=== PATIENT | female | born 1990 | race Caucasian/White ===

== ENCOUNTER 2017-01-20 05:36 | Inpatient (IN) | payer MEDICAID ==
[~2017-01-20] VITALS: Ht 152.4 cm; Wt 58.6 kg
[2017-01-20] VITALS (10 sets, daily range): BP systolic 95–134; BP diastolic 54–84; Ht 152.4 cm; Wt 58.6 kg
--- NOTE | ~2017-01-20 | OP ---
PATIENT NAME: YESI HADDAD MEDICAL RECORD: [id number] :91 LOCATION:[id number] ADMISSION DATE:01/20/17 SURGEON: JOSHUA RIVERS MD DATE OF OPERATION: 01/20/2017 PREOPERATIVE DIAGNOSES: 1. Intrauterine at 39 weeks. 2. Previous times 1. POSTOPERATIVE DIAGNOSES: 1. Intrauterine at 39 weeks. 2. Previous times 1. 3. Delivered. SURGEON: Joshua Rivers MD ANESTHESIA: Cole Singleton CRNA, NIC and Nicho Haskins MD with spinal anesthesia. PROCEDURE: Repeat low transverse . FINDINGS: Delivery of viable male from vertex presentation via repeat low transverse under spinal anesthesia at 8:07 a.m. with weight of 8 pounds 4 ounces and scores of 9 and 9 at 1 and 5 minutes respectively. No nuchal cord was noted. The cord was clamped and cut. The was bulb suctioned and handed to awaiting pediatric nursing personnel. The placenta was delivered manually intact 3-vessel cord at 8:08 a.m., 20 units of Pitocin and 1 liter of normal saline was begun IV. The fundus was initially noted to be firm. Normal appearing uterus, ovaries and tubes bilaterally. At the completion of the procedure, fundal massage for evacuation of clots performed with approximately 500-700 cc of blood and clot evacuated from a posteriorly displaced uterus. The fundus of the uterus retroflexed. The patient was given 800 mcg of Cytotec per rectum and 10 extra units of Pitocin in her IV fluids. The fundus was then noted to be firm. The patient went to the recovery room in stable condition, the infant to the nursery. DESCRIPTION OF PROCEDURE: After informed consent was given, the patient was taken to the operating room where spinal anesthesia was placed and found to be adequate. She was placed in a dorsal supine position with a leftward tilt. A Brandon catheter was placed with clear urine return noted. She was prepped and draped sterilely. When adequate anesthesia was established, a Pfannenstiel skin incision was made through her previous scar and carried down to the underlying layer of fascia. The fascia was incised in the midline and the fascial incision extended bilaterally with the Raines scissors. The superior portion of the fascial incision was grasped with 2 Kylah clamps and the rectus muscles dissected off sharply and bluntly. Attention was then turned to the inferior portion of the fascial incision, which was again grasped with 2 Kylah clamps and the rectus muscles dissected off sharply and bluntly. The rectus muscles were in the midline, the peritoneum identified and grasped with 2 hemostats. It was entered sharply with the Metzenbaum scissors and this incision was extended superiorly and inferiorly with good visualization of the bladder. The bladder blade was inserted and the vesicouterine peritoneum was grasped with smooth pickups and entered sharply with Metzenbaum scissors. This incision was extended bilaterally and a bladder flap created digitally. A bladder blade was reinserted. The hysterotomy was then created with the knife OPERATIVE REPORT [id number] YESI HADDAD and this was extended bilaterally bluntly, and the 's head delivered atraumatically. No nuchal cord was noted. The cord was clamped times 2 and cut. The infant was bulb suctioned and handed to awaiting pediatric nursing personnel. The placenta was delivered manually and passed off the field as specimen. Cord blood was obtained. The uterus was exteriorized, cleared of all clots and debris. The interior of the uterus was wiped with a moist lap sponge. The hysterotomy was then closed in 2 layers with 0 chromic in a running locked fashion, the second layer imbricating the first. Excellent hemostasis was noted and the uterus was returned to the abdomen. The abdomen was irrigated profusely and noted to be hemostatic. The fundus was noted to be firm at that time. Fibrin was placed over the hysterotomy site to aid additionally in hemostasis. The rectus muscles were reapproximated in the midline with 3 interrupted chromic sutures. Clear urine was noted at this portion of the procedure. The fascia was then closed with #1 Vicryl in a running locked fashion, locking the first suture. The subcutaneous tissue was irrigated, any bleeders cauterized with the Bovie and when noted to be sufficiently dry, it was closed with 3-0 Vicryl in a running fashion and the skin was closed with 3-0 Monocryl in a subcuticular fashion. Dermabond and pressure dressing were applied. The patient was then placed into a frog legged position and in the standard protocol, the fundus was massaged to evacuate clots. The fundus was noted to be posteriorly displaced/retroflexed and 500 to 700 cc of blood and clot were evacuated from the uterus and vagina. The nurse was immediately alerted to this and 800 mcg of Cytotec was ordered, and then placed rectally 10 additional units of Pitocin were placed into the IV to aid in uterine contraction. Bimanual massage was performed and the fundus remained firm. Lochia was light at completion of the procedure and the fundus was firm. The patient's vital signs remained stable throughout the procedure and at completion of the procedure. The patient was then transferred into the recovery room in stable condition, the to the nursery. The patient tolerated the procedure well. Sponge, lap, needle, and instrument counts were reported correct times 2. ESTIMATED BLOOD LOSS: 1200 cc. URINE OUTPUT: 300 cc. SPECIMENS: Placenta and cord blood. COMPLICATIONS: None. TRANSINT:[id number] Voice Confirmation ID: [id number] DOCUMENT ID: [id number] JOSHUA RIVERS MD CC: [id number] DICTATION DATE: 01/20/17939 MILL ATTENDANT: 01/20/17 1407 DIS IN 01/22/17 [facility] [address] [place] [address]
[2017-01-20] MEDS ORDERED: PRENATAL COMPLE1 TAB PO (05:57)
[2017-01-20 06:32] LABS: HEMATOCRIT 32.7 % (36.0-48.0); HEMOGLOBIN 11.4 g/dL (12-16); MCH 32.6 pg (26.0-34.0); MCHC 34.9 g/dL (31.0-37.0); MCV 93.4 fL (80.0-100.0); MEAN PLATELET VOLUME 10.2 fL (7.4-10.4); RBC 3.5 10x6/uL (4.00-5.40); RDW 12.7 % (11.5-14.5); WBC 8.4 10x3/uL (4.8-10.8)
--- NOTE | 2017-01-20 09:42 | NUR ---
Received to room by bed from recovery, pt is drowsy but wakes easily and repsonds to questions with appropriate response. VSS, IV to left forearm patent and placed on pump per orders, TEA BAG PACKER started and pt demonstrates use. Fundus firm at u/1 with light bleeding noted and no clots. Dixie pad changed. Bikini incision covered with large white abd dressing that is clean and dry. Brandon to bedside gravity drain with 50ml clear urine noted. SCD bilat on pump. Family allowed back to room but encouraged to limit visitors to 1 or 2 at a time. Side rails up x 2 with phone and call light in reach.
[2017-01-20 10:00] LABS: APPEARANCE CLEAR (CLEAR); BILIRUBIN NEGATIVE (NEGATIVE); COLOR YELLOW (YELLOW); GLUCOSE NEGATIVE (NEGATIVE); KETONE NEGATIVE (NEGATIVE); NITRITE NEGATIVE (NEGATIVE); PROTEIN NEGATIVE (NEGATIVE); SPECIFIC GRAVITY 1.015 (1.005-1.020); UROBILINOGEN NORMAL (NORMAL)
--- NOTE | 2017-01-20 10:02 | NUR ---
Fundus firm at u/u, no clots noted and scant bleeding. Pt tolerates massage well with diversion.
[2017-01-20 10:04] LABS: LEUKOCYTE ESTERASE TRACE (NEGATIVE)
[2017-01-20 10:06] LABS: BACTERIA MODERATE /hpf (NONE SEEN); MUCUS <1+ /lpf (NONE SEEN); RED CELLS - URINE OCC /hpf (0-5); WHITE CELLS - URINE 0-5 /hpf (0-5)
[2017-01-20 10:15] LABS: UDS - AMPHET NEGATIVE QUAL (NEGATIVE); UDS - BARB NEGATIVE QUAL (NEGATIVE); UDS - BENZO NEGATIVE QUAL (NEGATIVE); UDS - COCAINE NEGATIVE QUAL (NEGATIVE); UDS - METH NEGATIVE QUAL (NEGATIVE); UDS - OPIATE NEGATIVE QUAL (NEGATIVE); UDS - PCP NEGATIVE QUAL (NEGATIVE); UDS - THC NEGATIVE QUAL (NEGATIVE)
--- NOTE | 2017-01-20 10:15 | NUR ---
large ice water per request, new ice pack to incision site. Fundus firm at u/u with scant bleeding without clots. Chux and baljinder pad changed, pt is able to lift bottom to assist. Rates pain at 2/10, family at bedside.
[2017-01-20 10:28] LABS: BASOPHILS 0.1 % (0.0-2.0); EOSINOPHILS 0.3 % (0-7); HEMATOCRIT 30.6 % (36.0-48.0); HEMOGLOBIN 10.6 g/dL (12-16); IMMATURE GRANULOCYTES 1.3 % (0-5); LYMPHOCYTES 13.9 % (15-50); MCH 32.5 pg (26.0-34.0); MCHC 34.6 g/dL (31.0-37.0); MCV 93.9 fL (80.0-100.0); MEAN PLATELET VOLUME 9.9 fL (7.4-10.4); MONOCYTES 8.9 % (2-11); NEUTROPHILS 75.5 % (40-80); PLATELET COUNT 235 10x3/uL (130-400); RBC 3.26 10x6/uL (4.00-5.40); RDW 12.7 % (11.5-14.5); WBC 15.3 10x3/uL (4.8-10.8)
[2017-01-20 11:27] LABS: APTT 27.2 SECONDS (22.8-39.4); INR 0.98 (0.85-1.17); PROTIME 12.8 SECONDS (11.6-15.0)
--- NOTE | 2017-01-20 11:46 | NUR ---
FUNDUS FIRM UPON MASSAGE, PT TOLERATES BETTER WITH DIVERSON. LIGHT TO MODERATE BLEEDING NOTED, NO CLOTS WITH MASSAGE. CHUX AND TOWELS CHANGED, PT ABLE TO RAISE HER BOTTOM AND ASSIST WITH MOVING UP IN BED. HEAD OF BED ELEVATED, INFANT BROUGHT TO ROOM FOR FEEDING, PT ASK NURSERY FOR ASSISTANCE WITH LATCHING ON. sugar SALDANA RN REMAINS AT BEDSIDE. CALL LIGHT IN REACH.
--- NOTE | 2017-01-20 12:30 | NUR ---
large ice water per request. Pt more alert and moving around in bed, she is able to murphy her bottom without complaint for chux to be changed. fundus firm at u/1 with scant bleeding at this time. new ice pack to incision, bandage remains clean and dry. Side rails up x 2 with phone and call light in reach.
[2017-01-20 13:30] LABS: BASOPHILS 0.1 % (0.0-2.0); EOSINOPHILS 0.1 % (0-7); HEMOGLOBIN 8.8 g/dL (12-16); IMMATURE GRANULOCYTES 0.6 % (0-5); LYMPHOCYTES 14.4 % (15-50); MCH 32.4 pg (26.0-34.0); MCHC 35.2 g/dL (31.0-37.0); MEAN PLATELET VOLUME 9.8 fL (7.4-10.4); MONOCYTES 7.7 % (2-11); NEUTROPHILS 77.1 % (40-80); RBC 2.72 10x6/uL (4.00-5.40); RDW 12.6 % (11.5-14.5); WBC 14.5 10x3/uL (4.8-10.8)
[2017-01-20 13:31] LABS: MCV 91.9 fL (80.0-100.0); PLATELET COUNT 185 10x3/uL (130-400)
[2017-01-20 13:42] LABS: APTT 27.6 SECONDS (22.8-39.4); INR 1.05 (0.85-1.17); PROTIME 13.6 SECONDS (11.6-15.0)
--- NOTE | 2017-01-20 14:00 | NUR ---
Dixie care per rn, towels and chux changed and pt repositioned to right side with pillows used for support. Prior to turning pt shown how to use pillow to abdomen and uses incentive spirometer x 2 and coughs. tordal given as charted on emar. infant in room being held by family member. Side rails up x 2 with call light with in reach. Pt encouraged to rest/sleep if possible.
--- NOTE | 2017-01-20 15:01 | NUR ---
Pt awake and rates pain at 2/10, states the tordal helped with the cramping. fundus firm at u/1, no clots noted massage and light bleeding noted, baljinder pad changed. large ice water per request, no other needs at this time. side rails up x 2, pt sister at bedside.
--- NOTE | 2017-01-20 16:45 | NUR ---
Pt is awake and sitting up in bed visiting with family. Rates pain 2/10, denies nausea and no dizziness when sitting up. fundus firm at u/u with light lochia noted to baljinder pad, no clots with massage. Baljinder care per rn, towels anc chux changed with pt lifting her bottom off the bed without complaint. Coughs x 2 after use of incentive spirometer. Turns self to left side. in crib at bedside, side rails up x 2 with phone and call light in reach.
[2017-01-20 17:17] LABS: BASOPHILS 0.1 % (0.0-2.0); EOSINOPHILS 0.1 % (0-7); HEMOGLOBIN 8.3 g/dL (12-16); IMMATURE GRANULOCYTES 0.6 % (0-5); LYMPHOCYTES 17.4 % (15-50); MCH 32.2 pg (26.0-34.0); MCHC 34.6 g/dL (31.0-37.0); MEAN PLATELET VOLUME 10.1 fL (7.4-10.4); MONOCYTES 7.9 % (2-11); NEUTROPHILS 73.9 % (40-80); PLATELET COUNT 203 10x3/uL (130-400); RBC 2.58 10x6/uL (4.00-5.40); RDW 12.5 % (11.5-14.5); WBC 13.6 10x3/uL (4.8-10.8)
[2017-01-20 17:33] LABS: APTT 27.8 SECONDS (22.8-39.4); INR 1.05 (0.85-1.17); PROTIME 13.5 SECONDS (11.6-15.0)
--- NOTE | 2017-01-20 18:04 | NUR ---
fundus firm at u/u with scant bleeding noted. sanchez cath emptied, urine continue to be blue at this time. total output since pt recieved from recovery has been 1000ml. IV pump totals cleared at this time also. Pt rates pain at 3/10 and denies any needs.
--- NOTE | 2017-01-20 19:05 | NUR ---
Chicken broth provided to pt per request. Pt in semi fowlers position. Reports she changed position herself about 10 minutes ago. Does not want pads changed at this time. Reports she would like to eat the chicken broth first then have pads changed. Family member in room holding NB. SR up x2. Bed low. Call light in reach.
--- NOTE | 2017-01-20 19:50 | NUR ---
Assessment complete. Pt sitting up in bed with family in room. Fundus massaged. Firm and midline 1FB below umbillicus. Vag bleeding scant-small. Underpads changed. Pt reports some soreness in abd area. Pain med administered as ordered. See EMAR. Brandon in place and draining below level of bladder. SCDs in place. IV infusing without difficulty. See EMAR for med details. Repositioned to L side. Pt is going to do skin to skin contact with NB and attempt to breastfeed. Call light in reach. Bed low. SR up x2.
[2017-01-20 22:29] LABS: BASOPHILS 0.1 % (0.0-2.0); EOSINOPHILS 0.2 % (0-7); HEMATOCRIT 22.6 % (36.0-48.0); HEMOGLOBIN 7.9 g/dL (12-16); IMMATURE GRANULOCYTES 0.5 % (0-5); LYMPHOCYTES 10.6 % (15-50); MCH 32.5 pg (26.0-34.0); MEAN PLATELET VOLUME 9.8 fL (7.4-10.4); MONOCYTES 8.1 % (2-11); NEUTROPHILS 80.5 % (40-80); PLATELET COUNT 191 10x3/uL (130-400); RBC 2.43 10x6/uL (4.00-5.40); RDW 12.5 % (11.5-14.5); WBC 13.1 10x3/uL (4.8-10.8)
[2017-01-20 22:33] LABS: INR 1.11 (0.85-1.17); PROTIME 14.2 SECONDS (11.6-15.0)
--- NOTE | 2017-01-20 22:50 | NUR ---
DR. MENDES NOTIFIED OF MOST RECENT CBC RESULTS (SEE LAB RESULTS). NEW ORDER RCVD.
--- NOTE | 2017-01-20 23:00 | NUR ---
blood transfusion consent explained and signed by patient. family members present in room.
--- NOTE | 2017-01-20 23:15 | NUR ---
Pt repositioned self to back in fowlers position. Pads changed. Fundus firm and midline 1FB below umb. Scant vag bleeding noted.
--- NOTE | 2017-01-20 23:23 | NUR ---
NS infusing @ KVO.
--- NOTE | 2017-01-20 23:25 | NUR ---
One IV attempt to R wrist using 22G IV cath without success. Bandage to site. IV started x1 stick to R AC using 20G IV cath. Saline locked. Pt tolerated well.
--- NOTE | 2017-01-20 23:35 | NUR ---
NS infusing @ KVO.
--- NOTE | 2017-01-20 23:48 | NUR ---
First unit PRBC verified by this RN and CORRY Rosenthal. Blood band matched to blood. First unit PRBC started @ 30ml/hr. RN remains at bedside for monitoring.
[2017-01-21] VITALS (21 sets, daily range): BP systolic 93–122; BP diastolic 53–72
--- NOTE | 2017-01-21 00:02 | NUR ---
PRBC infusion increased to 125ml/hr. No s/s transufion rejection noted. Pt sitting up in bed talking with family.
--- NOTE | 2017-01-21 00:18 | NUR ---
PRBCs increased to 250ml/hr. No s/s transfusion reaction/rejection.
--- NOTE | 2017-01-21 01:15 | NUR ---
Pt sleeping upon entering room. Wakes easily with stimulus. Assisted to reposition to R tilt. Family at bedside. Call light in reach. Bed low. SR upx2.
--- NOTE | 2017-01-21 01:49 | NUR ---
Infusion of first unit PRBCs complete. NS infusing to flush line. Pt had no s/s transfusion reaction/rejection. Tolerated well.
--- NOTE | 2017-01-21 02:00 | NUR ---
Blood tubing changed.
--- NOTE | 2017-01-21 02:19 | NUR ---
Second unit PRBCs verified by this RN and Yuan Aldana RN. Blood bag matched to patients blood band on R wrist. Unit started @ 30ml/hr. Nurse at bedside for monitoring.
--- NOTE | 2017-01-21 02:35 | NUR ---
No s/s transfusion reaction noted. Pt sleeping. Infusion increased to 125ml/hr.
--- NOTE | 2017-01-21 02:47 | NUR ---
Infusion rate increased to 250ml/hr. No s/s transfusion reaction noted. Pt resting well. Call light in reach. Bed low. SR upx2. Family in room.
--- NOTE | 2017-01-21 03:30 | NUR ---
Pt repositioned self to semi fowlers position. Call light in reach. Bed low. SR upx2.
--- NOTE | 2017-01-21 03:37 | NUR ---
Pt sleeping. Pt request underpads not be changed. Bleeding remains scant. No clots present. Fundus firm and midline 1FB below umbillicus. Call light in reach. Bed low. SR upx2. Family at bedside.
--- NOTE | 2017-01-21 03:53 | NUR ---
Second unit PRBCs complete. Blood tubing changed. NS infusing @ KVO. No s/s transfusion reaction noted. Pt continues to sleep.
--- NOTE | 2017-01-21 04:21 | NUR ---
Third unit PRBCs verified by this RN and Yuan Aldana, RN. Blood bag matched to pts blood band on R wrist. Infusion started @ 30ml/hr. RN at bedside for monitoring. Pt resting well.
[2017-01-21 05:13] LABS: RAPID PLASMA REAGIN Non Reactive (Non Reactive)
--- NOTE | 2017-01-21 06:00 | NUR ---
[employer] syringe empty. New syringe placed.
--- NOTE | 2017-01-21 06:00 | NUR ---
Fundus massaged. Firm and midline 1FB below umbillicus. Scant amount of vag bleeding noted. No clots. Underpads changed. Pt repositioned to R side. Starting to c/o gas pain in abd. Pt given warm pad to place on upper abd and bilateral shoulders. Pt instructed not to place warm pad on incision. Pt verbalized understanding. Call light in reach. Bed low. SR upx2. Family at bedside.
--- NOTE | 2017-01-21 06:42 | NUR ---
Third unit PRBCs complete. Line flushed with NS @ 125ml/hr. No s/s transfusion reaction noted. Pt denies any complaints.
--- NOTE | 2017-01-21 07:09 | NUR ---
THIS RN TO ROOM FOR SHIFT ASSESSMENT. PT CURRENTLY RESTIN G QUIETLY W/EYES CLOSED IN HIGH CASTELAN'S POSITION. RESP REG AND EVEN. PT LEFT UNDISTURBED AT THIS TIME.
[2017-01-21 07:26] LABS: BASOPHILS 0.1 % (0.0-2.0); EOSINOPHILS 0.5 % (0-7); IMMATURE GRANULOCYTES 0.5 % (0-5); LYMPHOCYTES 10.2 % (15-50); MCH 31.6 pg (26.0-34.0); MCHC 34.9 g/dL (31.0-37.0); MONOCYTES 9.3 % (2-11); NEUTROPHILS 79.4 % (40-80); PLATELET COUNT 170 10x3/uL (130-400); RDW 13.2 % (11.5-14.5); WBC 13.6 10x3/uL (4.8-10.8)
[2017-01-21 07:30] LABS: HEMATOCRIT 31.2 % (36.0-48.0); HEMOGLOBIN 10.9 g/dL (12-16); MCV 90.4 fL (80.0-100.0); RBC 3.45 10x6/uL (4.00-5.40)
--- NOTE | 2017-01-21 07:30 | NUR ---
LAB OUT OF ROOM AFTER 1 HR POST INFUSION BLOOD DRAW.THIS RN TO BEDSIDE FOR SHIFT ASSESSMENT. PT CURRENTLY SITTING UP IN BED AA&O X 4. PAIN ASSESSED. PT REPORTS SHE HAS JUST NOW PUSHED HER HOUSEKEEPING SUPERVISOR HOTEL BUTTON FOR C/O INCISIONAL PAIN OF 6/10. PT REPORTS SHE IS STILL HAVING C/O GAS PAIN. REPORTS SHE WAS ABLE TO PASS SMALL AMOUNT OF JASIEL YESTERDAY, BUT HAS NOT TODAY. BREATHSOUNDS CL\=, ABD SOFT, SLIGHTLY DISTENDED. FUNDUS FIRM, U/1, LOW TRANSVERE INCISION W/LARGE ABD DRESSING C/D/I. CALDERON CATH IN PLACE W/APPROX 230ML URINE NOTED. GENERALIZED, NON-PTTING EDEMA NOTED TO LE'S. SCD WRAPS ON BILATERALLY TO LE'S. WRAPS CONNECTED TO PUMP. PT IS ON AND FUCTIONING. PT'S HAS PIV TO LEFT FOREARM W/20 UNITS OF PITOCIN IN NS INFUSING AT 100ML AND A DEMEROL HOUSEKEEPING SUPERVISOR HOTEL. A SECOND PIV TO LEFT AC W/NS INFUSIONG AT 125ML TO FLUSH BLOOD TUBING AFTER COMPLETION OF 3 RD UNIT OF PRBC'S. CLEAR LIQUID BREAKFAST TRAY SERVED AT THIS TIME. FRESH ICE WATER SERVED. CONTINUED POC DISCUSSED W/PT. PT VERBALIZES UNDERSTANDING AND IS AGREEABLE. APRROX 10 MINS PASS AFTER PT PUSHED HOUSEKEEPING SUPERVISOR HOTEL BFUTTON. PT REASSESSED AT THAT THIS TIME. PT NOW RATES PAIN 3-4/10. DENIES NEEDING ADDITIONAL PAIN MEDICATION AT THIS TIME. BED LOW,SIDE RAILS UP X 2, CALL LIGHT, HOUSEKEEPING SUPERVISOR HOTEL BUTTON AND PHONE AT PT'S SIDE. FAMILY ON SOFA.
[2017-01-21 07:37] LABS: APTT 31.3 SECONDS (22.8-39.4); INR 1.03 (0.85-1.17); PROTIME 13.3 SECONDS (11.6-15.0)
--- NOTE | 2017-01-21 09:00 | NUR ---
ROUNDS MADE. PT SITTING UP IN BED VISITNG W/GUESTS. NO NEEDS VOICED AT THIS TIME.
--- NOTE | 2017-01-21 09:30 | NUR ---
THIS RN TO BED TO D/C CALDERON, SALINE LOCK IV SITE. PT CURRENTLY ATTEMPTING TO FEED . PT INFORMED OF POC AT THIS TIME, BUT THAT THIS RN WILL RETURN TO ROOM ONCE PT HAS HAD TIME TO FEED INFANT. PT DENIES NEEDS AT THIS TIME.
--- NOTE | 2017-01-21 09:50 | NUR ---
PT RINGS CALL LIGHT TO REPORT SHE IS READY TO GET UP TO THE SHOWER. Jada SPARKSRN TO PT'S ROOM. RT AC IV SITE D/C'D. SITE WNL. BANDAID PLACED OVER SITE. IV SITE TO LEFT FOREARM FLUSHED AND SALINE LOCKED. CALDERON CATH D/C'D INTACT W/APPROX 225ML URINE NOTED IN UROMETER. SCD WRAPS REMOVED AT THIS TIME W/PT TEACHING THAT THEY MAY REMAIN OFF WHILE SHE IS AWAKE AND AMBULATORY, BUT WHEN SHE IS IN BED TO REST, MD REQUES THEY BE PLACED BACK ON,CONNECTED TO PUMP AND PUMP TURNED BACK ON. PT TO NOTIFY NURSE WHEN SHE IS GOING TO BE LYING IN BED FOR REST. PT VERBALIZES UNDERSTANDING AND IS AGREEABLE. PT OOB W/BED W/MINIMAL ASSISTANCE. TEACHING PROVIDED PER Jada SPARKS RN IN REGARDS TO HOW TO REMOVED ABD DRESSING WHILE IN THE SHOWER. BATHING ITEMS PROVIDED AND PT TO SHOWER AT THIS TIME.
--- NOTE | 2017-01-21 10:00 | NUR ---
PERCOCET 10/325MG ONE TAB ADMIN PER D CORRY SPARKS.SEE EMAR. PT UP TO SHOWER W/INSTRUCTIONS ON HOW TO REMOVE ABD DRESSING. BED LINENS CHANGED. BLUE BAG AND TRASH REMOVED FROM ROOM. CLEAN GOWN,PANTIES AND PADS PROVIDED.
--- NOTE | 2017-01-21 10:30 | NUR ---
DR MENDES TO ROOM TO SEE PT AT THIS TIME.
--- NOTE | 2017-01-21 11:00 | NUR ---
ROUNDS MADE. PT CURRENTLY UP AMBULATING IN ROOM. RATES PAIN 3/10. REPORTS ABLE TO PASS GAS AND GAS PAIN/PRESSURE HAS GONE. PT QUESTIONS IF DIET MAY BE ADVANCED TO A REGULAR DIET. PT INFORMED THAT YES, SHE MAY EAT A REGULAR DIET. BLAND DIET RECOMMENED. SOMRTHING TO EAT OR DRINK OFFERED. PT ACCEPTS. FRESH CUP OF ICE AND SANDWICH TRAY SERVED.PT DENIES FURTHER NEEDS AT THIS TIME.
--- NOTE | 2017-01-21 12:24 | NUR ---
THIS RN TO ROOM. PT HAS FINISHED EATING HER LUNCH. V/S OBTAINED. SEE FLOWSHEET. PAIN ASSESSED. PT REPORTS PAIN 01/16. DECLINES OFFER TO BRING HER ADDITIONAL PAIN MEDICATION AT THIS TIME.
--- NOTE | 2017-01-21 13:20 | NUR ---
CALLED TO ROOM BY PATIENT WAS ASKED TO LOOK AT INCISION. "I THINK I PULLED SOMETHING" VISUAL INSPECTION - INTACT WITHOUT DRAINAGE OR ERRYTHEMA. INSTRUCTED PT THAT SOMETIMES THE SURGICAL GLUE STICKS THE ABDOMEN TO INCISION AND THAT SOMETIMES THAT PULLS APART. VERBALIZED UNDERSTANDING. CLEAN HEIDI-PAD PLACED OVER INCISION TO HELP. STATES "THAT FEELS BETTER". INSTRUCTED TO CHANGE FREQUENTLY. VISITORS AND INFANT IN ROOM.
--- NOTE | 2017-01-21 14:22 | NUR ---
PT RINGS CALL VANI. Jada SPARKS,RN TO ROOM TO ASSESS PT'S NEEDS. PT REQUESTING PERCOCET FOR C/O PAIN. THIS RN TO ROOM TO ADMIN PERCOCET 10/325MG ONE TAB PER MD ORDERS. SEE EMAR. WHILE AT BEDSIDE, PT REQUEST ANOTHER SIMETHICONE FOR C/O INCREASED GAS. 80MG SIMETHICONE ADMIN PER MD ORDERS. SEE EMAR. FRESH ICE SERVED. PT DENIES FURTHER NEEDS AT THIS TIME. FRIEND ON SOFA W/INFANT UP IN ARMS.
--- NOTE | 2017-01-21 14:33 | NUR ---
PT RINGS CALL LIGHT TO HAVE NURSE COME TO ROOM TO ASSESS AMOUNT PT HAS VOIDED. Jada SPARKSRN TO ROOM. PT VOIDED 600ML URINE IN NUNS CAP. PT PLACES CLEAN PERIPAD OVER INCISION. AMBULATES W/OUT ASSISTANCE BACK TO BED. NO FURTHER NEEDS VOICED AT THIS TIME.
--- NOTE | 2017-01-21 15:12 | NUR ---
DESIRES TO BREASTFEED BUT HAS BEEN BOTTLEFEEDING SECONDARY TO FEELING LIKE "I'M NOT MAKING ANY MILK". DISCUSSED VS BOTTLE FEEDING AND ENCOURAGEMENT GIVEN TO CONTINUE TO ATTTEMPT TO BREASTFEED. LATCHES ON WITHOUT DIFFICULTY. DISCUSSED PROS AND CONS OF NIPPLE SHIELD USE AND PUMP USE AT THIS TIME. WRITTEN INFORMATION ALSO GIVEN ON TO READ AT HER LEISURE. SHE WILL CONTACT NURSERY IF SHE DECIDES TO PUMP TO STIMULATE MILK PRODUCTION AND CONTINUE TO PUT INFANT TO BREAST. VISITOR IN ROOM. CALL LIGHT IN REACH.
--- NOTE | 2017-01-21 15:27 | NUR ---
THIS RN TO BEDSIDE FOR PAIN REASSESSMENT. PT CURRENTLY RESTING IN HIGH CASTELAN'S W/INFANT ON CHEST. PT REPORTS PAIN IS GETTING BETTER, BUT STILL RATES IT AT A 7/10. DENIES NEEDS FOR FURTHER PAIN INTERVENTIONS AT THIS TIME. DENIES NEEDS AT THIS TIME.
--- NOTE | 2017-01-21 15:51 | NUR ---
PT AND FRIEND AMBULATING IN LIZ PER MD ORDERS TO AMBULATE X 2 DAILY
--- NOTE | 2017-01-21 17:56 | NUR ---
PT RETURNING FROM AMBULATING IN HALLS WITH FAMILY. PAIN AND NEEDS ASSESSED. PT DENIES NEEDS AT THIS TIME. REPORTS PAIN IS BEING TO INCREASE. STATES "I THINK IT'S BECAUSE I'VE BEEN UP MOVING AROUND. NO REQUEST PAIN INTERVENTIONS AT THIS TIME. PT REMINDED THAT SHE MAY HAVE PAIN MEDICATION AGAIN IN APRROX 30 MINS. PT VERBALZIES UNDERSTANDING. PT REMINDED TO VOID FREQUENTLY TO HELP DECREASE ABD PAIN. PT RETURNS TO ROOM WITH MULTIPLE FAMILY MEMBERS.
--- NOTE | 2017-01-21 18:43 | NUR ---
PT RINGS CALL LIGHT. THIS RN TO ROOM. PT REQUESTING PAIN MEDICATION AT THIS TIME. PERCOCET 10/325MG ONE TAB GIVEN PER MD ORDERS. SEE EMAR. PT REPORTS SHE HAS VOIDED AGAIN. NUNS CAP INSPECTED. 600ML URINE NOTED AND DUMP. TRASH AND DINNER TRAY REMOVED FROM ROOM. PT DENIES FURTHER NEEDS AT THIS TIME. PT RESTING IN BED W/INFANTON HER CHEST. MULTIPLE FAMILY GUEST REMAIN AT BEDSIDE.
--- NOTE | 2017-01-21 19:10 | NUR ---
PT AMBULATING IN LIZ. PT IN NO ACUTE DISTRESS. PT AMBULATING WITHOUT DIFFICULTY.
--- NOTE | 2017-01-21 19:29 | NUR ---
RN TO PT BS FOR ASAF. PT RESTING IN BED IN SEMI-FOWLERS POSITION, VISITING WITH MULTIPLE VISITORS AT PT BS, IN NO ACUTE DISTRESS. PT IS A 26YO G2 NOW P2 WITH REPEAT C/S YESTERDAY @ 0807 OF VIABLE MALE , INFANT @ 39.2 WKS GESTATION. PT WITH LOW LYING PLACENTA AND LARGE BLOOD LOSS AND S/P 3 UNITS PRBC'S YESTERDAY. AAOX3. HR REGULAR. LUNGS CTAB. ABDOMEN SOFT AND MILDLY DISTENDED. BS ACTIVE TIMES 4. FUNDUS NOT PALPATED. LOWER ABDOMINAL INCISION NOTED. WELL PROXIMATED. NO STERI STRIPS OR RADHA IN PLACE. NO REDNESS, EDEMA, OR DRAINAGE NOTED AT SITE. HEIDI PAD AND PANTIES IN PLACE. LOCHIA RUBRA SCANT. NO EDEMA NOTED TO UPPER OR LOWER EXTREMITIES BILATERALLY. 18G SL IN PLACE TO LEFT FA, NO REDNESS OR EDEMA NOTED TO SITE. PT TOLERATING REGULAR DIET. PT DENIES DIFFICULTY VOIDING, STATES SHE IS PASSING GAS, HAS NOT HAD A BM SINCE C/S. PT C/O PAIN RATES 6/10, PT MEDICATED WITH PERCOCET 10 AT 1840. PT DENIES ANY NEEDS AT THIS TIME. BED IN LOW POSITION, SIDE RAILS UP TIMES 2, CALL LIGHT AND PHONE IN REACH. MULTIPLE FAMILY MEMBERS REMAIN AT PT BS FOR SUPPORT AND ASSISTANCE. REMAINS AT PT BS FOR COUPLET CARE. WILL CONT TO MONITOR PT STATUS.
--- NOTE | 2017-01-21 20:53 | NUR ---
RN TO PT BS FOR ROUNDS. PT RESTING IN BED IN SEMI-FOWLERS POSITION, VISITING WITH MULTIPLE FAMILY MEMBERS AT PT BS. PT IN NO ACUTE DISTRESS. PT REQUESTS FORMULA FOR INFANT BOTTLE FEED. PROVIDED AT THIS TIME. PT DENIES ANY FURTHER NEEDS. BED IN LOW POSITION, SIDE RAILS UP TIMES 2, CALL LIGHT AND PHONE IN REACH. FAMILY REMAINS AT PT BS FOR SUPPORT AND ASSISTANCE. INFANT REMAINS AT PT BS FOR COUPLET CARE. WILL CONT TO MONITOR PT STATUS.
--- NOTE | 2017-01-21 21:27 | NUR ---
PT PROVIDED WITH HEATING PAD PER REQUEST. PT DENIES ANY FURTHER NEEDS AT THIS TIME. BED IN LOW POSITION, SIDE RAILS UP TIMES 2, CALL LIGHT AND PHONE IN REACH. FAMILY TIMES 1 REMAINS AT PT BS FOR SUPPORT AND ASSISTANCE. REMAINS AT PT BS FOR COUPLET CARE. WILL CONT TO MONITOR PT STATUS.
--- NOTE | 2017-01-21 22:18 | NUR ---
RN TO PT BS FOR ROUNDS. PT RESTING IN BED IN SEMI-FOWLERS POSITION, HOLDING , IN NO ACUTE DISTRESS. NURSERY RN AT PT BS ASSISTING WITH EFFORT. PT DENIES ANY NEEDS AT THIS TIME. BED IN LOW POSITION, SIDE RAILS UP TIMES 2, CALL LIGHT AND PHONE IN REACH. FAMILY AT PT BS TIMES 1 FOR SUPPORT AND ASSISTANCE. INFANT REMAINS AT PT BS FOR COUPLET CARE. WILL CONT TO MONITOR PT STATUS.
--- NOTE | 2017-01-21 22:51 | NUR ---
RN CALLED TO PT BS. PT C/O PAIN, RATES 05/18, REQUESTS MEDICATION. 1 TAB PERCOCET 10, 1 TAB IBUPROFEN, 1 TAB SIMETHICONE PROVIDED AT THIS TIME. PT DENIES ANY FURTHER NEEDS. BED IN LOW POSITION, SIDE RAILS UP TIMES 2, CALL LIGHT AND PHONE IN REACH. VS TAKEN, WNL. REMAINS AT PT BS FOR COUPLET CARE. WILL CONT TO MONITOR PT STATUS.
--- NOTE | 2017-01-22 00:03 | NUR ---
RN CALLED TO PT BS. PT REQUESTS THAT BE TRANSPORTED TO NURSERY FOR OBSERVATION. INFANT TRANSPORTED TO NURSERY VIA [facility] FOR OBSERVATION. REPORT GIVEN TO NURSERY RN. PT DENIES ANY FURTHER NEEDS AT THIS TIME. BED IN LOW POSITION, SIDE RAILS UP TIMES 2, CALL LIGHT AND PHONE IN REACH. WILL CONT TO MONITOR PT STATUS.
--- NOTE | 2017-01-22 00:04 | NUR ---
INFANT TO NSY PER Gallo QUEZADA RN. BABY SLEEPING AT THIS TIME. NO S/S DISTRESS NOTED. DANIEL WHEATLEY
[2017-01-22 02:48] VITALS: BP 99/57
--- NOTE | 2017-01-22 02:49 | NUR ---
RN CALLED TO PT BS WITH C/O PAIN, RATES 04/17, REQUESTS MEDICATION. 1 TAB PERCOCET 10 AND 1 TAB SIMETHICONE PROVIDED AT THIS TIME. VS TAKEN, WNL. PT DENIES ANY FURTHER NEEDS AT THIS TIME. BED IN LOW POSITION, SIDE RAILS UP TIMES 2, CALL LIGHT AND PHONE IN REACH. FAMILY TIMES 1 AT PT BS FOR SUPPORT AND ASSISTANCE. WILL CONT TO MONITOR PT STATUS.
--- NOTE | 2017-01-22 05:53 | NUR ---
RN TO PT BS FOR ROUNDS. PT RESTING IN BED IN SEMI-FOWLERS POSITION, WITH EYES CLOSED, HOLDING INFANT. PT AWAKENS EASILY WHEN SPOKEN TO. INFANT TRANSPORTED TO NURSERY VIA OPEN CRIB PER PT REQUEST. REPORT GIVEN TO NURSERY RN ON BOTTLE FEED. PT DENIES ANY FURTHER NEEDS. BED IN LOW POSITION, SIDE RAILS UP TIMES 2, CALL LIGHT AND PHONE IN REACH. FAMILY TIMES 1 FOR SUPPORT AND ASSISTANCE. WILL CONT TO MONITOR PT STATUS.
--- NOTE | 2017-01-22 07:00 | NUR ---
PT UP, AMBULATING IN [facility] TO NURSERY. PAIN AND NEEDS ASSESSED. PT REQUESTING DISPOSABLE PANTIES. RATES PAIN 04/17. PAIN MEDICATION OFFERED. PT ACCEPTS.
--- NOTE | 2017-01-22 07:20 | NUR ---
PT RETURNS TO ROOM WITH COFFEE TO DRINK. SPRITE SERVED PER PT REQUEST. PERCOCET 10/325MG ONE TAB GIVEN FOR C/O INCISIONAL PAIN. PT INFORMED THAT THIS RN WILL RETURN TO PERFORM SHIFT ASSESSMENT AFTER PT HAS HAD TIME TO HAVE HER COFFEE AND EAT HER BREAKFAST. BREAKFAST TRAY BEING SERVED THIS RN LEAVES THE ROOM. PT DENIES FURTHER NEEDS AT THIS TIME.
--- NOTE | 2017-01-22 08:00 | NUR ---
HOUSEKEEPING TO ROOM AT THIS TIME TO REMOVE TRASH AND DIRTY LINENS.
[2017-01-22 08:10] VITALS: BP 110/83
--- NOTE | 2017-01-22 08:10 | NUR ---
THIS RN TO BEDSIDE FOR SHIFT ASSESSMENT. PT CURRENTLY RESTING IN HIGH CASTELAN'S WITH EYES CLOSED AND PROPPED UP IN PT'S ARMS. PT OPENS EYES SPONTANEOUSLY WITH NOISE MADE IN ROOM. PAIN REASSESSMENT DONE. PT NOW RATES PAIN 3/10. NO ADDITIONAL PAIN INTERVENTION NEEDED AT THIS TIME. V/S STABLE. SEE FLOWSHEET. BREATHSOUNDS CL\=, ABD SOFT, NONDISTEDED. FUNDUS U/2, SMALL LOCHIA NOTED. BOWEL SOUNDS PRESENT X 4. LOW TRANSVERSE INCISION C/D/I W/DERMABOND. PERIPAD PLACED OVER INCISION FOR PT'S COMFORT. PEDAL PULSES PRESENT BILATERALLY. NO EDEMA NOTED TO LE'S. PT ATE 90% OF BREAKFAST TRAY. TRAY REMOVED FROM ROOM AT THIS TIME. PT DENIES NEEDS AT PRESENT.
--- NOTE | 2017-01-22 09:00 | NUR ---
ROUNDS MADE. PT REMAINS IN IN HIGH CASTELAN'S W/ UP IN ARMS. PT AWAKE, BUT RESTING IN THE DARK. PT REQUEST THIS RN INSPECT HER RT HIP TO SEE IF IT IS BRUISED. PT REPORTS THE AREA FEELS NUMB, BUT WHEN SHE PUTS PRESSURE ON IT, IT FEELS LIKE IT IT BRUISED. UPON INSPECTION, NO OBVIUOS BRUISING NOTED. SITE COOL THE TOUCH AND WITH PALPATION, SWELLING IS NOTED. PT INFORMED THAT IT MAY BE FROM HER BEING PROPPED WHILE ON THE OR TABLE FOR HER SURGERY. PT STATES "YEAH,NOW THAT YOU SAY THAT, I REMEMBER BEING PROPPED." SUGGESTION MADE THAT PT HAVE DR MENDES LOOK AT IT TODAY. PT IS AGREEABLE. PT REQUEST HER COFFEE BE REHEATED. COFFEE HEATED AND RETURNED TO PT. PT REPORTS SHE IS GETTING READY TO FEED BABY, REPORTS PAIN 3/10, DENIES NEEDS AT PRESENT. FAMILY IN ROOM WITH PT.
--- NOTE | 2017-01-22 10:00 | NUR ---
ROUNDS MADE. PT CURRENTLY VISITING W/GUESTS AT BEDSIDE. PAIN ASSESSED. PT CONTINUES TO RATE PAIN 3/10. DENIES NEEDING FURTHER PAIN INTERVENTIONS AT THIS TIME.
--- NOTE | 2017-01-22 10:30 | NUR ---
PT RINGS CALL LIGHT. THIS RN TO BEDSIDE. PT REPORTS SHE IS GETTING READY TO GET IN THE SHOWER. SALINE LOCKED D/C'D. SITE WNL. BANDAID PLACED OVER SITE. ADDITIONAL TOWELS AND PANTIES PROVIDED.
--- NOTE | 2017-01-22 10:45 | NUR ---
PT TO SHOWER AT THIS TIME. BED LINENS CHANGED.
--- NOTE | 2017-01-22 11:15 | NUR ---
PT RETURNS TO ROOM AFTER AMBULATING IN [facility]. THIS RN TO ROOM TO MEDICATE PT. PT CURRENTLY RATES PAIN 04/17. PERCOCET 10/325MG ONE TAB GIVEN PER MD ORDERS. PT DENIES FURTHER NEEDS AT THIS TIME. FAMILY X 2 IN ROOM W/ UP IN ONE VISITORS ARMS.
--- NOTE | 2017-01-22 11:58 | NUR ---
THIS RN TO BEDSIDE. PT CURRENTLY EATING LUNCH TRAY SERVED. DENIES NEEDS AT PRESENT. TDAP INFO SHEET PROVIDED AND PT INFORMED THAT TDAP IS OFFERED TO HER BEFORE DISCHARGE. PT VEBALZIES UNDERSTANDING AND IS AGREEABLE.
--- NOTE | 2017-01-22 12:28 | NUR ---
THIS RN TO ROOM TO CONFIRM THAT PT WISHES TO RECIEVE THE TDAP. PT CONFIRMS THAT SHE DOES WANT THE TDAP. PRESCRIPTIONS FOR MOTRIN 600MG AND PERCOCET 5/325MG PROVIDED TO PT'S FATHER SO HE MAY GET SCRIPTS FILLED WHILE WAITING ON DISCHARGE. PHARMACY CALLED TO BRING DTAP TO L&D.
--- NOTE | 2017-01-22 13:00 | NUR ---
THIS RN TO BEDSIDE FOR DISCHARGE TEACHING. PT CURRENTLY SITTING UP IN BED GETTING READY TO FEED . PT ASKED TO RING CALL LIGHT ONCE SHE HAS FEED SO THIS RN MAY RETURN TO DISCUSS DISCHARGE WITH HER. PT IS AGREEABLE.
--- NOTE | 2017-01-22 13:15 | NUR ---
PT RINGS CALL LIGHT. THIS RN TO ROOM. TDAP TEACHING PROVIDED THEN TDAP GIVEN TO LEFT ARM PER PROTOCOL. PT TOLERLATED WELL. DISCHARGE TEACHING PROVIDED IN REGARDS TO CARE OF INCISION, BREAST AND BOTTLE FEEDING, MEDICATIONS, PP DEPRERSSION, COMMUNITY SERVICES AVAILABLE. PT DENIES QUESTIONS AT THIS TIME. ALL DISCHARGE PAPER SIGNED AND COPIES PROVIDED TO PT.
--- NOTE | 2017-01-22 13:45 | NUR ---
PT DISCHARGED HOME. TRANSFERED VIA W/C TO AWAITING CAR TO BE DRIVEN HOME.
== END 2017-01-22 13:45 | disposition home or self-care (01) | DRG 766 ==
LOC: D.LD 05:36 → D.SDCHOLD 07:30 → D.LD 01-22 13:45
PROVIDERS: ADMIT Specialist
PROC: 10D00Z1 Extraction of Products of Conception, Low, Open Approach (ICD-10-PCS; principal; 2017-01-20 07:30)
DX: O34.211 Maternal care for low transverse scar from previous cesarean delivery (principal); Z3A.39 39 weeks gestation of pregnancy; Z37.0 Single live birth; O99.02 Anemia complicating childbirth; D64.89 Other specified anemias

== ENCOUNTER 2018-08-05 21:38 | Emergency (ER) | payer MEDICAID ==
[~2018-08-05] VITALS: Ht 152.4 cm; Wt 45.0 kg
[~2018-08-05 21:38] MED LIST: PRENATAL COMPLE1 TAB PO
[2018-08-05 21:49] VITALS: Ht 152.4 cm; Wt 45.0 kg
[2018-08-05 22:29] LABS: BASOPHILS 0.2 % (0-2); EOSINOPHILS 2.8 % (0-7); HEMATOCRIT 41.7 % (36.0-48.0); HEMOGLOBIN 14.4 g/dL (12-16); IMMATURE GRANULOCYTES 0.2 % (0-5); LYMPHOCYTES 41.4 % (15-50); MCH 31.6 pg (26.0-34.0); MCHC 34.5 g/dL (31.0-37.0); MCV 91.4 fL (80.0-100.0); MEAN PLATELET VOLUME 10.6 fL (7.4-10.4); NEUTROPHILS 47.4 % (40-80); RBC 4.56 10x6/uL (4.00-5.40); RDW 12.4 % (11.5-14.5); WBC 8.2 10x3/uL (4.8-10.8)
[2018-08-05 22:31] LABS: PLATELET COUNT 251 10x3/uL (130-400)
[2018-08-05 22:31] LABS: APPEARANCE CLEAR (CLEAR); BILIRUBIN NEGATIVE (NEGATIVE); COLOR YELLOW (YELLOW); GLUCOSE NEGATIVE (NEGATIVE); KETONE NEGATIVE (NEGATIVE); NITRITE NEGATIVE (NEGATIVE); PROTEIN NEGATIVE (NEGATIVE); UROBILINOGEN NORMAL (NORMAL)
[2018-08-05 22:33] LABS: BACTERIA FEW /hpf (NONE SEEN); EPITHELIAL CELLS 0-5 /hpf (0-5); RED CELLS - URINE 0-5 /hpf (0-5); WHITE CELLS - URINE 0-5 /hpf (0-5)
[2018-08-05 22:44] LABS: ALBUMIN 3.8 g/dL (3.4-5.0); ALKALINE PHOSPHATASE 52 U/L (46-116); ALT (SGPT) 22 U/L (10-68); BILIRUBIN - TOTAL 0.22 mg/dL (0.2-1.3); CALC OSMOLALITY 280 mosm/kg (275-300); CALCIUM 8.6 mg/dL (8.5-10.1); CARBON DIOXIDE 30.9 mmol/L (21.0-32.0); CHLORIDE - SERUM 105 mmol/L (98-107); GLUCOSE 86 mg/dL (74-106); POTASSIUM - SERUM 3.9 mmol/L (3.5-5.1); PROTEIN - SERUM 7.4 g/dL (6.4-8.2); SODIUM 140 mmol/L (136-145); UREA NITROGEN 22 mg/dL (7-18); eGFR NON AFRICAN AMERICAN 71 mL/min (90-120)
[2018-08-05 22:46] LABS: AMYLASE - SERUM 57 U/L (25-115); LIPASE 213 U/L (73-393)
[2018-08-05 22:48] LABS: TROPONIN-I < 0.017 ng/mL (0.000-0.060)
[2018-08-05 22:56] LABS: HCG SERUM NEGATIVE (NEGATIVE)
[2018-08-05] MEDS ORDERED: ZOFRAN ODT4 MG/UDTAB PO (23:36)
[2018-08-06 00:36] VITALS: BP 106/64
== END 2018-08-06 00:36 | disposition home or self-care (01) ==
LOC: D.ER 21:38
PROVIDERS: Family Medicine
DX: T62.91XA Toxic effect of unspecified noxious substance eaten as food, accidental (unintentional), initial encounter (principal); Y92.019 Unspecified place in single-family (private) house as the place of occurrence of the external cause; R11.2 Nausea with vomiting, unspecified

== ENCOUNTER 2019-07-28 15:06 | Emergency (ER) | payer MEDICAID ==
[~2019-07-28] VITALS: Ht 152.4 cm; Wt 43.2 kg
[~2019-07-28 15:06] MED LIST changes: +ZOFRAN ODT4 MG/UDTAB PO
[2019-07-28 15:10] VITALS: Ht 152.4 cm; Wt 43.2 kg
[2019-07-28 15:40] LABS: BASOPHILS 0.2 % (0-2); EOSINOPHILS 2.3 % (0-7); HEMATOCRIT 43.2 % (36.0-48.0); HEMOGLOBIN 14.9 g/dL (12-16); IMMATURE GRANULOCYTES 0.2 % (0-5); MCH 31.9 pg (26.0-34.0); MCHC 34.5 g/dL (31.0-37.0); MCV 92.5 fL (80.0-100.0); MEAN PLATELET VOLUME 9.9 fL (7.4-10.4); MONOCYTES 9.2 % (2-11); NEUTROPHILS 44.1 % (40-80); PLATELET COUNT 265 10x3/uL (130-400); RBC 4.67 10x6/uL (4.00-5.40); RDW 11.9 % (11.5-14.5); WBC 5.6 10x3/uL (4.8-10.8)
[2019-07-28 15:44] LABS: APPEARANCE CLEAR (CLEAR); BILIRUBIN NEGATIVE (NEGATIVE); COLOR YELLOW (YELLOW); GLUCOSE NEGATIVE (NEGATIVE); KETONE NEGATIVE (NEGATIVE); NITRITE NEGATIVE (NEGATIVE); PROTEIN NEGATIVE (NEGATIVE); SPECIFIC GRAVITY 1.015 (1.005-1.020); UROBILINOGEN NORMAL (NORMAL)
[2019-07-28 15:46] LABS: BACTERIA MODERATE /hpf (NEGATIVE); EPITHELIAL CELLS 0-5 /hpf (0-5); WHITE CELLS - URINE 0-5 /hpf (NEGATIVE)
[2019-07-28 15:48] LABS: HCG URINE NEGATIVE (NEGATIVE)
[2019-07-28 15:51] LABS: CALC OSMOLALITY 276 mosm/kg (275-300); CALCIUM 9.1 mg/dL (8.5-10.1); CARBON DIOXIDE 32.9 mmol/L (21.0-32.0); CHLORIDE - SERUM 105 mmol/L (98-107); CREATININE - SERUM 0.8 mg/dL (0.6-1.3); GLUCOSE 106 mg/dL (74-106); POTASSIUM - SERUM 4.1 mmol/L (3.5-5.1); SODIUM 139 mmol/L (136-145); UDS - AMPHET POSITIVE QUAL (NEGATIVE); UDS - BARB NEGATIVE QUAL (NEGATIVE); UDS - BENZO POSITIVE QUAL (NEGATIVE); UDS - COCAINE NEGATIVE QUAL (NEGATIVE); UDS - OPIATE NEGATIVE QUAL (NEGATIVE); UDS - PCP NEGATIVE QUAL (NEGATIVE); UDS - THC POSITIVE QUAL (NEGATIVE); UREA NITROGEN 9 mg/dL (7-18); eGFR NON AFRICAN AMERICAN > 90 mL/min (90-120)
[2019-07-28 15:57] LABS: ALBUMIN 3.9 g/dL (3.4-5.0); ALKALINE PHOSPHATASE 52 U/L (46-116); ALT (SGPT) 32 U/L (10-68); BILIRUBIN - TOTAL 0.33 mg/dL (0.2-1.3); MAGNESIUM - SERUM 2.2 mg/dL (1.8-2.4)
[2019-07-28 16:45] VITALS: BP 118/72
== END 2019-07-28 16:46 | disposition other institution (70) ==
LOC: D.ER 15:06
PROVIDERS: Emergency Medicine
DX: R56.9 Unspecified convulsions (principal); F17.200 Nicotine dependence, unspecified, uncomplicated

== ENCOUNTER 2020-04-03 22:00 | Emergency (ER) | payer MEDICAID ==
[~2020-04-03] VITALS: Ht 152.4 cm; Wt 45.5 kg
[2020-04-03 22:05] VITALS: Ht 152.4 cm; Wt 45.5 kg
[2020-04-03] MEDS ORDERED: SUBOXONE 2 MG-01 TAB SL (22:11)
[2020-04-03] MEDS ORDERED: MOVANTIK25 MG PO (23:27)
[2020-04-04 00:42] VITALS: BP 115/70
== END 2020-04-04 00:42 | disposition home or self-care (01) ==
LOC: D.ER 22:00
DX: K59.00 Constipation, unspecified (principal); R11.2 Nausea with vomiting, unspecified; R10.9 Unspecified abdominal pain